=== PATIENT | female | born 1985 | race American Indian/Alaskan Native ===

== ENCOUNTER 2016-09-18 13:53 | Emergency (ER) | payer MEDICAID ==
[2016-09-18 14:04] VITALS: BP 135/81; PULSE 79; RESP 20; TEMP 97.8; O2SAT 98
[2016-09-18] MEDS ORDERED: Sodium Chloride 0.9% 1,000 ML IV STA (14:17)
--- NOTE | 2016-09-18 14:21 | ED PDOC ---
HPI: Allergic Reaction Time Seen by Provider: 09/18/16 14:10 Chief Complaint (Nursing): Allergic Reaction History Per: Patient (states that she felt onset of itchy rashes shortly after eating shrimps along with [employer]. States that she had shrimps 2 days ago and was okay. She had slight nausea and now c/o mostly of lower abdominal pain. She denies vomiting or diarrhea but vomited profusely after she was seen by me. ) History/Exam Limitations: no limitations Onset/Duration Of Symptoms: Hrs (1-2 hours prior), Sudden Onset Past Medical History Reviewed: Historical Data, Nursing Documentation, Vital Signs Vital Signs: Last Vital Signs Temp 97.8 F 09/18/16 14:01 Pulse 79 09/18/16 14:01 Resp 20 09/18/16 14:01 BP 135/81 09/18/16 14:01 Pulse Ox 98 09/18/16 14:01 - Medical History PMH: No Chronic Diseases - Surgical History Surgical History: No Surg Hx - Family History Family History: States: No Known Family Hx - Living Arrangements Living Arrangements: With Family - Social History Current smoker - smoking cessation education provided: No Alcohol: Occasional - Home Medications Home Medications: Ambulatory Orders Medication Instructions Recorded Famotidine [Pepcid] 20 mg PO BID #28 tab 09/18/16 Metoclopramide [Reglan] 10 mg PO TID PRN #15 tab 09/18/16 - Allergies Allergies/Adverse Reactions: Allergies Allergy/AdvReac Type Severity Reaction Status Date / Time Penicillins Allergy RASH Verified 09/18/16 14:04 Review of Systems ROS Statement: Except As Marked, All Systems Reviewed And Found Negative Constitutional: Negative for: Fever, Chills Respiratory: Negative for: Cough, Shortness of Breath, Wheezing Gastrointestinal: Positive for: Nausea, Vomiting, Abdominal Pain. Negative for : Diarrhea Skin: Positive for: Rash (with excoriations) Physical Exam - Reviewed Nursing Documentation Reviewed: Yes Vital Signs Reviewed: Yes - Physical Exam Appears: Positive for: Well, Non-toxic, No Acute Distress, Uncomfortable Head Exam: Positive for: ATRAUMATIC, NORMAL INSPECTION, NORMOCEPHALIC Skin: Positive for: Normal Color, Warm, Rash (with excoriations) Eye Exam: Positive for: EOMI, Normal appearance, PERRL ENT: Positive for: Normal ENT Inspection Neck: Positive for: Normal, Painless ROM Cardiovascular/Chest: Positive for: Regular Rate, Rhythm Respiratory: Positive for: CNT, Normal Breath Sounds Gastrointestinal/Abdominal: Positive for: Normal Exam, Bowel Sounds, Soft Back: Positive for: Normal Inspection Extremity: Positive for: Normal ROM Neurologic/Psych: Positive for: Alert, Oriented - Laboratory Results Result Diagrams: 09/18/16 14:45 09/18/16 14:45 - ECG O2 Sat by Pulse Oximetry: 98 - Progress Re-evaluation Time: 18:14 Condition: Re-examined, Improved Disposition - Clinical Impression Clinical Impression: Allergic reaction - Patient ED Disposition Is Patient to be Admitted: No Doctor Will See Patient In The: Office Counseled Patient/Family Regarding: Diagnosis, Need For Followup, Rx Given - Disposition Disposition: Routine/Home Disposition Time: 18:20 Condition: IMPROVED Prescriptions: Famotidine [Pepcid] 20 mg PO BID #28 tab Metoclopramide [Reglan] 10 mg PO TID PRN #15 tab PRN Reason: Nausea/Vomiting Instructions: General Allergic Reaction (ED) - POA Present On Arrival: None
[2016-09-18 15:57] LABS: BASO % 0.7 % (0.0-2.0); EOS % 0.4 % (0.0-4.0); HEMATOCRIT 38.7 % (34.0-47.0); LYMPH # 2.5 K/uL (1.0-4.3); LYMPH % 35.5 % (20.0-40.0); MEAN CELL VOLUME 85.5 fl (81.0-99.0); MEAN CORPUSCULAR HEMOGLOBIN 28.1 pg (27.0-31.0); MEAN CORPUSCULAR HGB CONC 32.9 g/dL (33.0-37.0); MEAN PLATELET VOLUME 8.2 fl (7.2-11.7); MONO # 0.3 K/uL (0.0-0.8); MONO % 4.1 % (0.0-10.0); NEUT # 4.2 K/uL (1.8-7.0); NEUT % 59.3 % (50.0-75.0); RED CELL DISTRIBUTION WIDTH 13.7 % (11.5-14.5)
[2016-09-18 16:11] LABS: BLOOD UREA NITROGEN 12 mg/dl (7-17); CALCIUM 9.3 mg/dL (8.4-10.2); CARBON DIOXIDE 22 mmol/L (22-30); CHLORIDE 103 mmol/L (98-107); GFR AFRICAN-AMERICAN > 60; GLUCOSE,RANDOM 142 mg/dL (65-105); SODIUM 142 mmol/l (132-148)
[2016-09-18 16:13] LABS: POTASSIUM 3.8 MMOL/L (3.6-5.0)
== END 2016-09-18 18:48 | disposition home or self-care (01) ==
LOC: H.ER 13:53
DX: T78.40XA Allergy, unspecified, initial encounter (principal); R11.0 Nausea; R10.9 Unspecified abdominal pain